=== PATIENT | female | born 1995 | race African-American/Black ===

== ENCOUNTER 2025-02-04 13:01 | Emergency (ER) | payer SELFPAY ==
[~2025-02-04] VITALS: Ht 160 cm; Wt 53.0 kg
[2025-02-04 13:18] VITALS: BP 96/61; TEMP 36.9; O2SAT 100
[2025-02-04 13:21] VITALS: PULSE 89; RESP 18; O2SAT 99
[2025-02-04] MEDS: CYCLOBENZAPRINE 10MG TABLET PO ONE (17:53)
[2025-02-04] MEDS: LIDOCAINE 5% PATCH TOP SCH (17:54)
[2025-02-04] MEDS: KETOROLAC 15MG/ML VIAL IM ONE (17:54)
[2025-02-04] MEDS ORDERED: LIDO700A30 TP (17:55)
[2025-02-04] MEDS ORDERED: IBUP-2028 MT (17:55)
[2025-02-04] MEDS ORDERED: CYCL5TAB3 MT (18:14)
[2025-02-04] MEDS ORDERED: ACET-2708 MT (18:14)
== END 2025-02-04 18:19 | disposition home or self-care (01) ==
LOC: ER 13:01
DX: S16.1XXA Strain of muscle, fascia and tendon at neck level, initial encounter (principal); S39.012A Strain of muscle, fascia and tendon of lower back, initial encounter; M25.522 Pain in left elbow; V89.2XXA Person injured in unspecified motor-vehicle accident, traffic, initial encounter; Y93.89 Activity, other specified; Y92.89 Other specified places as the place of occurrence of the external cause; Y99.8 Other external cause status
CPT/HCPCS: 99284; 72125; 73070; J1885